=== PATIENT | female | born 1990 | race Caucasian/White ===

== ENCOUNTER 2019-08-26 20:43 | Emergency (ER) | payer MEDICAID ==
[2019-08-26] MEDS ORDERED: METOCLOPRAMIDE HCL 10 MG/2 ML VIAL IVP ONE (21:04)
[2019-08-26] MEDS ORDERED: DIPHENHYDRAMINE HCL 50 MG/ML VIAL IVP ONE (21:04)
--- NOTE | 2019-08-26 21:14 | Emergency Department Record ---
History of Present Illness - General Chief complaint: Flu Like Symptoms Stated complaint: FEVER,COUGH Time Seen by Provider: 08/26/19 20:45 Source: Patient Mode of Arrival: Ambulatory Limitations: No limitations - History of Present Illness Initial comments: 28 yo female presents to ED for evaluation of fever, body aches, cough, and headache symptoms that began 3 days ago. Patient reports that her two children have tested positive for influenza, reports that her headache will not improve despite taking over the counter medications at home. Patient denies productive cough, abdominal pain, urinary symptoms, or flank pain. Patient report history of Raine's thyroiditis and being evaluated for auto-immune diseases through her PCP. MD Complaint: Generalized weakness Onset/Timin -: Days(s) Location: Generalized, Face Severity: Severe Severity scale (1-10): 9 Quality: Other Consistency: Constant Improves with: None Worsens with: Other (Coughing) Context: Recent illness Associated Symptoms: Fever/chills, Myalgias - Maddie Coma Scale Eye Response: (4) Open spontaneously Motor Response: (6) Obeys commands Verbal Response: (5) Oriented [place] Total: 15 - Related Data Home Medications Medication Instructions Recorded Confirmed Last Taken Clindamycin Phosphate 08/26/19 Unknown Erythromycin Base [Erythromycin 08/26/19 Unknown OPTH Ointment] Fluorometholone 08/26/19 08/26/19 Unknown Levothyroxine Sodium 08/26/19 Unknown [place] HCl 08/26/19 Unknown Polyethylene Glycol 3350 08/26/19 Unknown Allergies Allergy/AdvReac Type Severity Reaction Status Date / Time acetaminophen [From Vicodin] Allergy HIVES Verified 08/26/19 20:57 amoxicillin Allergy HIVES Verified 08/26/19 20:57 hydrocodone [From Vicodin] Allergy HIVES Verified 08/26/19 20:57 Travel Screening - Travel/Exposure Within Last 30 Days Have you traveled within the last 30 days?: No - Travel/Exposure Within Last Year Have you traveled outside the [place] in the last year?: No - Additonal Travel Details Have you been exposed to anyone with a communicable illness?: Yes Exposure Details:: influenza b - Travel Symptoms Symptom Screening: None Review of Systems Constitutional: Reports: Fever, Malaise, Weakness. Denies: Chills, Night sweats Eyes: Denies: Eye discharge, Eye pain ENT: Denies: Congestion, Ear pain, Epistaxis Respiratory: Reports: Cough. Denies: Dyspnea Cardiovascular: Denies: Dyspnea on exertion, Edema Endocrine: Denies: Fatigue, Heat or cold intolerance Gastrointestinal: Denies: Abdominal pain, Nausea, Vomiting Genitourinary: Denies: Incontinence, Retention Musculoskeletal: Reports: Myalgia. Denies: Arthralgia, Back pain Skin: Denies: Bruising, Change in color Neurological: Reports: Headache. Denies: Abnormal gait, Confusion, Seizure Psychiatric: Denies: Anxiety Hematological/Lymphatic: Denies: Anemia, Blood Clots Past Medical History - SOCIAL HISTORY Smoking Status: Never smoker Alcohol Use: None Drug Use: None - RESPIRATORY Hx Respiratory Disorders: No - CARDIOVASCULAR Hx Cardio Disorders: No - NEURO Hx Neuro Disorders: No Hx Headaches: Yes - GI Hx GI Disorders: No - Hx Genitourinary Disorders: No - ENDOCRINE Comment:: hoshimotos - MUSCULOSKELETAL Hx Musculoskeletal Disorders: No - PSYCH Hx Psych Problems: No - HEMATOLOGY/ONCOLOGY Hx Hematology/Oncology Disorders: No Family Medical History Any Significant Family History?: No Physical Exam - General General Appearance: Alert, Oriented x3, Cooperative, Mild distress Limitations: No limitations - Head Head exam: Atraumatic, Normocephalic, Normal inspection Head exam detail: negative: Abrasion, Contusion, Myers's sign, General tenderness, Hematoma, Laceration - Eye Eye exam: Normal appearance. negative: Conjunctival injection, Periorbital swelling, Periorbital tenderness, Scleral icterus - ENT Ear exam: negative: Auricular hematoma, Auricular trauma Nasal Exam: negative: Active bleeding, Discharge, Dried blood, Foreign body Mouth exam: negative: Drooling, Laceration, Muffled voice, Tongue elevation - Neck Neck exam: Normal inspection. negative: Meningismus, Tenderness - Respiratory Respiratory exam: Normal lung sounds bilaterally. negative: Rales, Respiratory distress, Rhonchi, Stridor - Cardiovascular Cardiovascular Exam: Normal rhythm, Normal heart sounds, Tachycardia - GI/Abdominal GI/Abdominal exam: Soft. negative: Rebound, Rigid, Tenderness - Rectal Rectal exam: Deferred - exam: Deferred - Extremities Extremities exam: Normal inspection. negative: Pedal edema, Tenderness - Back Back exam: Denies: CVA tenderness (R), CVA tenderness (L) - Neurological Neurological exam: Alert, Normal gait, Oriented X3 - Psychiatric Psychiatric exam: Normal affect, Normal mood - Skin Skin exam: Normal color. negative: Abrasion Type of lesion: negative: abrasion Course Vital Signs 08/26/19 20:49 Temperature 99.4 F Pulse Rate [ 120 H Pulse Ox Probe] Respiratory 24 Rate Blood Pressure 165/117 [Left Arm] Pulse Ox 96 - Reevaluation(s) Reevaluation #1: 08/26/19 21:41 Influenza: Negative Reevaluation #2: 08/26/19 22:05 Patient was reassessed and reports that her headache symptoms are down from 03/31 to 09/28 Repeat examination does not reveal any meningeal signs on examination. No other bacterial source of infection is present on examination. Patient appears stable for discharge with symptomatic treatment as discussed. Disposition Disposition: Discharge Clinical Impression: Viral syndrome Acute headache Qualifiers: Headache type: unspecified Intractability: not intractable Qualified Code(s): R51 - Headache Disposition: Home, Self-Care Condition: (2) Stable Instructions: Viral Syndrome (ED) Additional Instructions: Return to ED if your symptoms worsen or if you have any concerns. Tylenol. Ibuprofen as directed. Follow-up with your family doctor in 3-5 days as directed. Forms: Patient Portal Access Time of Disposition: 22:06 Quality - Quality Measures Quality Measures: N/A - Blood Pressure Screening Does Patient Have Any of the Following: No Blood Pressure Classification: Hypertensive Reading Systolic Measurement: 165 Diastolic Measurement: 117 Screening for High Blood Pressure: < First Hypertensive BP, F/U Documented > [[id number]] First Hypertensive Follow-up Interventions: Referral to alternative/primary care provider.
[2019-08-26] MEDS ORDERED: 0.9 % SODIUM CHLORIDE 1000ML 1,000 ML IV SCH (21:15)
[2019-08-26] MEDS: KETOROLAC 30 MG/ML VIAL IVP ONE ×2 (21:21→21:24)
[2019-08-26 21:40] LABS: INFLUENZA A NEGATIVE (NEGATIVE); INFLUENZA B NEGATIVE (NEGATIVE)
== END 2019-08-26 22:25 | disposition home or self-care (01) ==
LOC: ER 20:43
DX: B34.9 Viral infection, unspecified (principal); R51 Headache; R53.1 Weakness; R05 Cough; E06.3 Autoimmune thyroiditis
CPT/HCPCS: 87400; 96374; 96375; 99284; J1200; J1885; J2765; J7030